=== PATIENT | male | born 1955 | race African-American/Black ===

== ENCOUNTER 2019-03-08 14:56 | Emergency (ER) | payer MEDICARE ==
[2019-03-08 16:58] LABS: ABS Eosinophils 0.3 10^3/ul (0-0.6); ABS Lymphocytes 2.8 10^3/ul (1.0-4.8); ABS Monocytes 0.7 10^3/ul (0-0.8); ABS Neutrophils 6.5 10^3/ul (1.5-7.7); Eosinophil % 2.7 %; Hematocrit 37 % (42-52); Hemoglobin 12.5 g/dL (14.0-18.0); Lymphocyte % 27.5 %; Mean Corpuscular HGB Conc 34 g/dL (31-36); Mean Corpuscular Hemoglobin 27 pg (27-31); Mean Corpuscular Volume 80 fL (80-94); Platelet Count 277 10^3/uL (150-450); Red Blood Count 4.61 10^6 /uL (4.18-5.48); Red Cell Distribution Width 14 % (10.5-15); White Blood Count 10.3 10^3/uL (3.5-10.8)
[2019-03-08 17:14] LABS: BUN/Creatinine Ratio 16.9 (8-20); Calcium 9.3 mg/dL (8.6-10.3); EGFR African American 67.9 (>60); EGFR Non-African American 56.1 (>60); Potassium 3.9 mmol/L (3.5-5.0); Total Bilirubin 0.4 mg/dL (0.2-1.0)
--- NOTE | 2019-03-08 17:24 | ED ---
Complex/Multi-Sys Presentation - HPI Summary HPI Summary: 63-year-old male past medical history significant for hypertension and chronic sciatica of the right leg presents today complaining of left leg paresthesias, and chest pressure. The paresthesias have been going on for several weeks. However the chest pressure just started this morning at 9 AM. The patient denies weakness in his left lower extremity. The paresthesias are intermittent. They're accompanied by shocking sensation going down his legs bilaterally. The pressure in his chest is not accompanied by shortness of breath, sweats or nausea. The pressure is mild and feels like a slight hand push on his chest. The patient thinks that the symptoms may be due to anxiety secondary to having the discomfort in his leg. He is able to ambulate. He has had not had incontinence of stool or urine. He is voiding completely. He denies any new focal neurologic deficits. - History Of Current Complaint Chief Complaint: EDNeurologicalDeficit Time Seen by Provider: 03/08/19 15:46 Hx Obtained From: Patient Onset/Duration: Gradual Onset, Lasting Weeks, Still Present Timing: Intermittent, Lasting:, Minutes Severity Currently: Mild Severity Initially: Mild - Allergies/Home Medications Allergies/Adverse Reactions: Allergies Allergy/AdvReac Type Severity Reaction Status Date / Time No Known Allergies Allergy Verified 03/08/19 16:28 Home Medications: Home Medications Acetaminophen TAB* [Tylenol TAB*] 650 mg PO BID 03/08/19 [History Confirmed ] Aspirin EC TAB* [Ecotrin EC Low Dose 81 MG*] 81 mg PO DAILY 03/08/19 [History Confirmed 03/08/19] Atorvastatin* [Lipitor*] 80 mg PO DAILY 03/08/19 [History Confirmed 03/08/19] Cetirizine HCl [Allergy Relief] 10 mg PO DAILY 03/08/19 [History Confirmed 03/08] Cyclobenzaprine TAB* [Flexeril 10 MG TAB*] 10 mg PO BID PRN 03/08/19 [History Confirmed 03/08/19] Diclofenac Sodium EC TAB* [Voltaren EC TAB*] 75 mg PO BID 03/08/19 [History Confirmed 03/08/19] Losartan/Hydrochlorothiazide [Losartan Potassium/Hydroc 100-25 mg] 1 tab PO DAILY 03/08/19 [History Confirmed 03/08/19] Verapamil HCl [Verapamil ER] 360 mg PO DAILY 03/08/19 [History Confirmed ] metFORMIN* [Glucophage 1000 MG TAB *] 1,000 mg PO BID 03/08/19 [History Confirmed 03/08/19] PMH/Surg Hx/FS Hx/Imm Hx Previously Healthy: No - history of hypertension Infectious Disease History: No Infectious Disease History: Denies: Traveled Outside the [place] in Last 30 Days - Social History Alcohol Use: quit drinking 23 years ago Substance Use Type: Reports: None Smoking Status (MU): Former Smoker Review of Systems Constitutional: Negative Negative: Fever, Chills, Fatigue Eyes: Negative ENT: Negative Negative: Sore Throat Positive: Chest Pain. Negative: Palpitations Respiratory: Negative Negative: Shortness Of Breath, Cough Gastrointestinal: Negative Negative: Abdominal Pain, Vomiting, Diarrhea, Nausea Genitourinary: Negative Negative: burning, dysuria, discharge, frequency, hematuria, incontinence, pain , urgency Positive: Arthralgia. Negative: Myalgia, Decreased ROM, Edema Skin: Negative Positive: Paresthesia. Negative: Headache, Weakness Positive: Anxious All Other Systems Reviewed And Are Negative: Yes Physical Exam - Summary Physical Exam Summary: Constitutional: Well-developed, Well-nourished, Alert. (-) Distressed Skin: Warm, Dry HENT: Normocephalic; Atraumatic Eyes: Conjunctiva normal Neck: Musculoskeletal ROM normal neck. (-) JVD, (-) Stridor, (-) Tracheal deviation Cardio: Rhythm regular, rate normal, Heart sounds normal; Intact distal pulses; The pedal pulses are 2+ and symmetric. Radial pulses are 2+ and symmetric. (-) Murmur Pulmonary/Chest wall: Effort normal. (-) Respiratory distress, (-) Wheezes, (-) Rales Abd: Soft, (-) tenderness, (-) Distension, (-) Guarding, (-) Rebound Musculoskeletal: there is pressure to palpation of the lower lumbar spine. Positive straight leg raise on the right, negative on the left. Neurovascularly intact bilaterally Lymph: (-) Cervical adenopathy Neuro: Alert, Oriented x3. Patient has 5/5 strength bilaterally in all extremities. In legs there is good proximal and distal muscle strength with normal strength on dorsiflexion and plantar flexion of both feet. He has good sensation bilaterally. Psych: Mood and affect Normal Triage Information Reviewed: Yes Vital Signs On Initial Exam: Initial Vitals Temp Pulse Resp BP Pulse Ox 98.6 F 68 16 158/75 97 03/08/19 15:19 03/08/19 15:19 03/08/19 15:19 03/08/19 15:19 03/08/19 15:19 Vital Signs Reviewed: Yes Diagnostics - Vital Signs Vital Signs Temp Pulse Resp BP Pulse Ox 03/08/19 15:19 98.6 F 68 16 158/75 97 - Laboratory Lab Results: Lab Results 03/08/19 03/08/19 03/08/19 Range/Units 16:49 16:49 16:49 WBC 10.3 (3.5-10.8) 10^3/uL RBC 4.61 (4.18-5.48) 10^6 /uL Hgb 12.5 L (14.0-18.0) g/dL Hct 37 L (42-52) % MCV 80 (80-94) fL MCH 27 (27-31) pg MCHC 34 (31-36) g/dL RDW 14 (10.5-15) % Plt Count 277 (150-450) 10^3/uL MPV 8.0 (7.4-10.4) fL Neut % (Auto) 62.6 % Lymph % (Auto) 27.5 % [place] % (Auto) 6.8 % Eos % (Auto) 2.7 % Baso % (Auto) 0.4 % Absolute Neuts (auto) 6.5 (1.5-7.7) 10^3/ul Absolute Lymphs (auto) 2.8 (1.0-4.8) 10^3/ul Absolute Monos (auto) 0.7 (0-0.8) 10^3/ul Absolute Eos (auto) 0.3 (0-0.6) 10^3/ul Absolute Basos (auto) 0.0 (0-0.2) 10^3/ul Absolute Nucleated RBC 0.0 10^3/ul Nucleated RBC % 0.0 Sodium 136 (135-145) mmol/L Potassium 3.9 (3.5-5.0) mmol/L Chloride 103 (101-111) mmol/L Carbon Dioxide 25 (22-32) mmol/L Anion Gap 8 (2-11) mmol/L BUN 22 (6-24) mg/dL Creatinine 1.30 H (0.67-1.17) mg/dL Est GFR ( Amer) 67.9 (>60) Est GFR (Non-Af Amer) 56.1 (>60) BUN/Creatinine Ratio 16.9 (8-20) Glucose 133 H (70-100) mg/dL Lactic Acid 1.3 (0.5-2.0) mmol/L Calcium 9.3 (8.6-10.3) mg/dL Total Bilirubin 0.40 (0.2-1.0) mg/dL AST 37 (13-39) U/L ALT 60 H (7-52) U/L Alkaline Phosphatase 98 (34-104) U/L Troponin I 0.00 (<0.04) ng/mL Total Protein 8.0 (6.4-8.9) g/dL Albumin 4.0 (3.2-5.2) g/dL Globulin 4.0 (2-4) g/dL Albumin/Globulin Ratio 1.0 (1-3) Result Diagrams: 03/08/19 16:49 03/08/19 16:49 Diagnostic Studies Comment: CXR read by radiology as NAD Lab Statement: Any lab studies that have been ordered have been reviewed, and results considered in the medical decision making process. - EKG 1651 Cardiac Rate: NL EKG Rhythm: Sinus Rhythm ST Segment: Normal Ectopy: None - left axis deviation, t-waves normal. Nonspecific ekg. Complex Multi-Symp Course/Dx Assessment/Plan: cardiac work-up completed which was normal. - Diagnoses Provider Diagnoses: Radiculopathy, Chest pain Discharge - Sign-Out/Discharge Documenting (check all that apply): Patient Departure Patient Received Moderate/Deep Sedation with Procedure: No - Discharge Plan Condition: Stable Disposition: HOME Prescriptions: methylPREDNISolone [Medrol Dosepak 4 MG*] 0 mg PO .SEE NILTON INSTRUCTION #21 tab Patient Education Materials: Lumbar Radiculopathy (ED) Print Language: CITIZEN OF [place] Referrals: Tomasz Ta MD [Medical Doctor] - Gustavo Foster MD [Primary Care Provider] - - Billing Disposition and Condition Condition: STABLE Disposition: Home
[2019-03-08] MEDS ORDERED: predniSONE TAB* 20 MG PO ONE (19:11)
[2019-03-08 19:31] VITALS: BP 136/70
== END 2019-03-08 19:29 | disposition home or self-care (01) ==
LOC: ED 14:56
DX: M54.10 Radiculopathy, site unspecified (principal); R07.9 Chest pain, unspecified; I10 Essential (primary) hypertension; M54.30 Sciatica, unspecified side; Z87.891 Personal history of nicotine dependence; Z79.82 Long term (current) use of aspirin
CPT/HCPCS: 36415; 71045; 80053; 83605; 84484; 85025; 93005; 99282; J7512

== ENCOUNTER 2019-09-02 16:46 | Emergency (ER) | payer MEDICARE ==
--- NOTE | 2019-09-02 17:16 | ED ---
Dizziness - HPI Summary HPI Summary: This patient is a 64 year old male presenting to [facility] with a chief complaint of dizziness 2 hours ago. He has concerns for his vital because earlier today he was feeling dizzy which he describes as light-headedness and thought maybe he took his mediation improperly and began to have an anxiety attack. He reports blurred vision during this attack. He states he checked his sugar and it was 94 which was low for him and ate food. He denies weakness. - History Of Current Complaint Chief Complaint: EDGeneral Stated Complaint: VITALS CHECK BLOOD PRESSURE PROBLEM PER PT Time Seen by Provider: 09/02/19 17:08 Hx Obtained From: Patient Character: Lightheaded - Allergies/Home Medications Allergies/Adverse Reactions: Allergies Allergy/AdvReac Type Severity Reaction Status Date / Time No Known Allergies Allergy Verified 03/08/19 16:28 PMH/Surg Hx/FS Hx/Imm Hx Endocrine/Hematology History: Denies: Hx Diabetes Cardiovascular History: Reports: Hx Hypertension - ON MEDS Denies: Hx Pacemaker/ICD Respiratory History: Denies: Hx Asthma History: Denies: Hx Renal Disease Musculoskeletal History: Reports: Hx Back Problems Denies: Hx Scoliosis Sensory History: Denies: Hx Hearing Aid Psychiatric History: Denies: Hx Panic Disorder - Surgical History Surgery Procedure, Year, and Place: BILAT HIP REPLACEMENTS; Infectious Disease History: No Infectious Disease History: Denies: Traveled Outside the [place] in Last 30 Days - Family History Known Family History: Positive: Hypertension Negative: Seizure Disorder - Social History Alcohol Use: quit drinking 23 years ago Substance Use Type: Reports: None Smoking Status (MU): Former Smoker Review of Systems Positive: Blurred Vision Neurological: Other - Dizziness Negative: Weakness Positive: Anxious All Other Systems Reviewed And Are Negative: Yes Physical Exam - Summary Physical Exam Summary: Constitutional: Well-developed, Well-nourished, Alert. (-) Distressed Skin: Warm, Dry HENT: Normocephalic; Atraumatic Eyes: Conjunctiva normal Neck: Musculoskeletal ROM normal neck. (-) JVD, (-) Stridor, (-) Tracheal deviation Cardio: Rhythm regular, rate normal, Heart sounds normal; Intact distal pulses; Radial pulses are 2+ and symmetric. Systolic Ejection Murmur. Pulmonary/Chest wall: Effort normal. (-) Respiratory distress, (-) Wheezes, (-) Rales Abd: Soft, (-) tenderness, (-) Distension, (-) Guarding, (-) Rebound Musculoskeletal: (-) Edema Lymph: (-) Cervical adenopathy Neuro: Alert, Oriented x3. Strength normal, Cranial nerves II-XII are grossly intact. (-) Dysmetria, (-) Nystagmus, (-) Ataxia by finger to nose testing, (-) Sensory deficit. Psych: Mood and affect Normal Triage Information Reviewed: Yes Vital Signs On Initial Exam: Initial Vitals Temp Pulse Resp BP Pulse Ox 97.5 F 70 18 162/74 96 09/02/19 16:58 09/02/19 16:58 09/02/19 16:58 09/02/19 16:58 09/02/19 16:58 Vital Signs Reviewed: Yes Procedures - Sedation Patient Received Moderate/Deep Sedation with Procedure: No Diagnostics - Vital Signs Vital Signs Temp Pulse Resp BP Pulse Ox 09/02/19 16:58 97.5 F 70 18 162/74 96 - Laboratory Lab Statement: Any lab studies that have been ordered have been reviewed, and results considered in the medical decision making process. - EKG 1744 Cardiac Rate: NL - 63 BPM EKG Rhythm: Sinus Rhythm Summary of EKG Findings: No STEMI. ED Physician has reviewed and interpreted this report. Dizzy Course/Dx - Course Course Of Treatment: Patient is here with vague symptoms of near syncope 2 hours ago that has resolved. Patient has a normal neuro and cardiac exam. Patient had his glucose checked and that was normal. Patient had a negative EKG for any abnormality. Patient does not need further workup at this time. Patient was encouraged to return if you he has any symptoms. - Diagnoses Provider Diagnoses: Pre-syncope Discharge ED - Sign-Out/Discharge Documenting (check all that apply): Patient Departure - Discharge - Discharge Plan Condition: Stable Disposition: HOME Patient Education Materials: Lightheadedness (ED) Referrals: Gustavo Foster MD [Primary Care Provider] - Additional Instructions: Return to the ED with chest pain, difficulty breathing, slurred speech, or numbness on either side of your body. - Billing Disposition and Condition Condition: STABLE Disposition: Home - Attestation Statements Document Initiated by Scribe: Yes Documenting Scribe: Tacho Rehman Provider For Whom Scribe is Documenting (Include Credential): Wilton Sellers MD Scribe Attestation: I, Tacho Rehman, scribed for Wilton Sellers MD on 09/02/19 at 1934. Scribe Documentation Reviewed: Yes Provider Attestation: The documentation as recorded by the scribe, Tacho Rehman accurately reflects the service I personally performed and the decisions made by me, Wilton Sellers MD Status of Scribe Document: Viewed
--- OUTSIDE RECORDS SUMMARY | 2019-09-02 17:46 | XMS REPORT | Continuity of Care Document ---
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 Problems Description No Information Available Social History Type Date Description Comments Sex Unknown ETOH Use Denies alcohol use Tobacco Use Start: Unknown End: Patient is a former smoker Unknown Smoking Status Reviewed: 05/01/19 Patient is a former smoker Exercise Type/Frequency Exercises regularly Allergies, Adverse Reactions, Alerts Description No Known Drug Allergies Medications Active Medications SIG Qnty Indications Ordering Provider Date Tylenol 8 Hour 1 by mouth Unknown 650mg Tablets ER twice a day Aspirin 81 1 by mouth Unknown 81mg Tablets DR every day Lipitor 1 by mouth Unknown 80mg Tablets every day Cetirizine HCL 1 by mouth Unknown 10mg Tablets every day Diclofenac Sodium take 1 tablet Unknown 75mg Tablets twice a day DR with food Losartan 1 by mouth Unknown Potassium/Hydrochlorothia every day zide 100-25mg Tablets Verapamil HCL ER 1 by mouth Unknown 120mg Caps ER every day 24HR Glucophage one by mouth Unknown 1000mg Tablets twice a day with food Cyclobenzaprine HCL take 1 tab by Unknown 10mg mouth 2-3 times Tablets a day as needed Acetaminophen-Codeine #3 Unknown 300-30mg Tablets Immunizations Description No Information Available Vital Signs Date Vital Result Comment 08/04/2019 9:58am Height 75.5 inches 6'3.50" Weight 361.00 lb Heart Rate 64 /min BP Systolic 148 mmHg BP Diastolic 90 mmHg Respiratory Rate 18 /min Pain Level 0 BMI (Body Mass Index) 44.5 kg/m2 06/01/2019 9:25am Height 75 inches 6'3" Weight 389.75 lb BP Systolic Sitting 140 mmHg BP Diastolic Sitting 80 mmHg Pain Level 7 BMI (Body Mass Index) 48.7 kg/m2 Results Description No Information Available Procedures Description No Information Available Medical Devices Description No Information Available Encounters Type Date Location Provider Dx Diagnosis Office Visit 06/01/2019 Neurosurgery Cristiano Cramer, M43.06 Spondylolysis, 9:30a [facility] NAZ lumbar region M48.061 Spinal stenosis, lumbar region without neurogenic rafia Office Visit 05/01/2019 Neurosurgery Cristiano M43.06 Spondylolysis, 3:00p [facility] lumbar region M48.061 Spinal stenosis, lumbar region without neurogenic rafia Office Visit 03/31/2019 Neurosurgery Cristiano M43.06 Spondylolysis, 9:30a [facility] lumbar region Assessments Date Code Description Provider 08/04/2019 M48.061 Spinal stenosis of lumbar region NAZ Jones 08/04/2019 M43.06 Spondylolysis, lumbar region NAZ Jones 06/01/2019 M43.06 Spondylolysis, lumbar region NAZ Jones 06/01/2019 M48.061 Spinal stenosis of lumbar region NAZ Jones 05/01/2019 M43.06 Spondylolysis, lumbar region NAZ Jones 05/01/2019 M48.061 Spinal stenosis of lumbar region NAZ Jones 03/31/2019 M43.06 Spondylolysis, lumbar region NAZ Jones Plan of Treatment Future Appointment(s):09/01/2019 10:00 am - NAZ Jones at [facility]surgery [facility]08/04/2019 - AURY Jones48.061 Spinal stenosis, lumbar region without neurogenic [id number] Spondylolysis, lumbar regionFollow up:RT C in 3 -4 weeks with imaging Functional Status Description No Information Available Mental Status Description No Information Available Referrals Refer to Reason for Referral Status Appt Date [facility] Sent 05/17/[address] [place] [address] [address] [place] [address] [phone] [employer] [facility] education, pt has Patient Declined [facility] diabetes please see office note. Thank you. [address] [facility] [place], [place] [id number] [phone]
--- OUTSIDE RECORDS SUMMARY | 2019-09-02 17:46 | XMS REPORT | Continuity of Care Document ---
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 Problems Description No Information Available Social History Type Date Description Comments Sex Unknown ETOH Use Denies alcohol use Tobacco Use Start: Unknown End: Patient is a former smoker Unknown Smoking Status Reviewed: 09/01/19 Patient is a former smoker Exercise Type/Frequency [...] Available Vital Signs Date Vital Result Comment 09/01/2019 10:07am Height 76 inches 6'4" Weight 357.00 lb Heart Rate 78 /min BP Systolic 154 mmHg BP Diastolic 80 mmHg BMI (Body Mass Index) 43.5 kg/m2 08/04/2019 9:58am Height 75.5 inches 6'3.50" Weight 361.00 lb Heart Rate 64 /min BP Systolic 148 mmHg BP Diastolic 90 mmHg Respiratory Rate 18 /min Pain Level 0 BMI (Body Mass Index) 44.5 kg/m2 Results Description No Information Available Procedures Description No Information Available Medical Devices Description No Information Available Encounters Type Date Location Provider Dx Diagnosis Office Visit 06/01/2019 Neurosurgery Cristiano Cramer, M43.06 Spondylolysis, 9:30a [facility] NAZ lumbar region M48.061 Spinal stenosis, lumbar region without neurogenic rafia Office Visit 05/01/2019 Neurosurgery Cristiano M43.06 Spondylolysis, 3:00p [facility] NAZ Cramer lumbar region M48.061 Spinal stenosis, lumbar region without neurogenic rafia Office Visit 03/31/2019 Neurosurgery Cristiano M43.06 Spondylolysis, 9:30a [facility] lumbar region Assessments Date Code Description Provider 09/01/2019 M48.061 Spinal stenosis of lumbar region NAZ Jones 09/01/2019 M43.06 Spondylolysis, lumbar region Cristiano Cramer PA 09/01/2019 M54.2 Neck pain Cristiano Cramer PA 09/01/2019 M54.12 Cervical radiculopathy NAZ Jones 08/04/2019 M48.061 Spinal stenosis of lumbar region Cristiano Cramer PA 08/04/2019 M43.06 Spondylolysis, lumbar region Cristiano Cramer PA 06/01/2019 M43.06 Spondylolysis, lumbar region Cristiano Cramer PA 06/01/2019 M48.061 Spinal stenosis of lumbar region Cristiano Cramer PA 05/01/2019 M43.06 Spondylolysis, lumbar region Cristinao Cramer PA 05/01/2019 M48.061 Spinal stenosis of lumbar region Cristiano Cramer PA 03/31/2019 M43.06 Spondylolysis, lumbar region Cristiano Cramer PA Plan of Treatment Future Appointment(s):10/11/2019 3:00 pm - NAZ Jones at [facility]09/01/2019 - AURY Joens48.061 Spinal stenosis, lumbar region without neurogenic [id number] Spondylolysis, lumbar [id number] [id number] Radiculopathy, cervical regionNew Xrays:SP Cervical 2-3 VWS, Ordered: 09/01/19MRI Cervical Spine Wo, Ordered: 09/01/19 Functional Status Description No Information Available Mental Status Description No Information Available Referrals Refer to Dr Reason for Referral Status Appt Date [facility] Sent 05/17/[address] [place] [address] [address] [place] [address] [phone] [employer] [facility] education, pt has Patient Declined [facility] diabetes please see office note. Thank you. [address] [place] [address] [phone]
[2019-09-02 18:09] VITALS: BP 156/78
== END 2019-09-02 18:08 | disposition home or self-care (01) ==
LOC: ED 16:46
DX: R55 Syncope and collapse (principal); I10 Essential (primary) hypertension; Z87.891 Personal history of nicotine dependence; Z96.643 Presence of artificial hip joint, bilateral; Z79.899 Other long term (current) drug therapy
CPT/HCPCS: 93005; 99281